=== PATIENT | male | born 1990 | race Caucasian/White ===

== ENCOUNTER 2022-08-14 14:49 | Emergency (ER) | payer MEDICAID ==
[2022-08-14] MEDS ORDERED: Sodium Chloride 0.9% 10 ML Syringe FLUSH PRN (15:39)
[2022-08-14] MEDS ORDERED: Ondansetron 4 MG/2 ML SDV IVPUSH ONE (15:39)
[2022-08-14] MEDS ORDERED: Ketorolac 30 MG/ML SDV IVPUSH ONE (15:39)
[2022-08-14] MEDS ORDERED: Sodium Chloride 0.9% 1,000 ML IV ONE (15:39)
[2022-08-14 15:57] LABS: ESTIMATED GFR 92 mL/min (>60)
[2022-08-14] MEDS ORDERED: Iopamidol 755 Mg/ML 100 ML Bottle IV ONE (17:41)
[2022-08-14] MEDS ORDERED: LORazepam 2 MG/ML SDV IVPUSH ONE (19:52)
== END 2022-08-14 21:21 ==
LOC: FB.ED 14:49
DX: K80.00 Calculus of gallbladder with acute cholecystitis without obstruction (principal); E86.0 Dehydration; Z72.0 Tobacco use
CPT/HCPCS: 36415; 74177; 80053; 81001; 83690; 83735; 85025; 86140; 96361; 96374; 96375; 99285; 99285-25; J1885; J2060; J2405; J3490; J7030; Q9967

== ENCOUNTER 2023-04-02 22:41 | Emergency (ER) | payer OTHER, MEDICAID ==
[2023-04-02] MEDS ORDERED: Lidocaine 2% Viscous Solution 15 ML UD PO ONE (23:25)
== END 2023-04-02 23:46 | disposition home or self-care (01) ==
LOC: FB.ED 22:41
DX: T23.131A Burn of first degree of multiple right fingers (nail), not including thumb, initial encounter (principal); F17.210 Nicotine dependence, cigarettes, uncomplicated; X10.2XXA Contact with fats and cooking oils, initial encounter
CPT/HCPCS: 73130-RT; 99283; A9270-GY